=== PATIENT | female | born 2000 | race Caucasian/White ===

== ENCOUNTER 2019-07-23 02:28 | Emergency (ER) | payer BC, SELFPAY ==
--- NOTE | 2019-07-23 02:29 | ED.GENADULT ---
HPI - General Adult General Chief complaint: Altered Mental Status Stated complaint: od Time Seen by Provider: 07/23/19 02:32 Source: patient, EMS and RN notes reviewed Mode of arrival: EMS Limitations: no limitations History of Present Illness HPI narrative: Pt is a 18 y/o female who presents to the ED, via EMS, with c/o an OD. Pt reports that she took 7 Hydrocodone and an uncertain number of Melatonin ( just threw them into [my] hand ) around 1-1:30am. In response to what she had been intending she responded just trying to get someone's attention, maybe . She denies any nausea and notes that she is just tired. Pt denies having any medical issues or having any allergies. MD complaint: OD on Hydrocodone and Melatonin Onset (ago): hour(s) (1-2) Quality: other ( just trying to get someones attention, maybe ) Associated symptoms: other (tired) Related Data Home Medications Medication Instructions Recorded Confirmed No Home Medications 07/23/19 07/23/19 Allergies Allergy/AdvReac Type Severity Reaction Status Date / Time No Known Allergies Allergy Verified 07/23/19 02:42 Review of Systems Review of Systems: Narrative: Pt is a 18 y/o female who presents to the ED, via EMS, with c/o an OD. Pt reports that she took 7 Hydrocodone and an uncertain number of Melatonin ( just threw them into [my] hand ) around 1-1:30am. In response to what she had been intending she responded just trying to get someone's attention, maybe . She denies any nausea and notes that she is just tired. Pt denies having any medical issues or having any allergies. All systems reviewed & are unremarkable except as noted in HPI and below Constitutional: Constitutional: Reports other (tired) Gastrointestinal: Gastrointestinal: Denies nausea Psychiatric: Psychiatric: Reports other ( just trying to get someones attention, maybe ) [facility] Past Medical History Medical History (Updated 07/23/19 @ 05:18 by Dick Braswell MD) Kidney stone UTI (urinary tract infection) Surgical History Surgical History (Updated 07/23/19 @ 02:42 by Charo Oneal) History of renal stent due to kidney stone History of right knee surgery History of tonsillectomy Family History Family History (Updated 04/01/19 @ 13:28 by DOCTOR UNKNOWN) Mother Family history of gastrointestinal disorder Father Patient's father is in good health Cerebrovascular accident Grandparent Carcinoma of colon Social History Social History Smoking status: Never smoker Alcohol intake: current Exam Const: General: healthy appearing, no acute distress and alert Nutritional Appearance: well nourished Orientation/consciousness: oriented x3 HENMT: Head: normal to inspection Mouth: Yes moist mucous membranes Eyes: Conjunctivae: conjunctivae normal Pupils: PERRL EOM: EOM intact bilaterally Neck: Neck: normal visual inspection Resp: Effort & Inspection: normal respiratory effort Auscultation: clear to auscultation bilaterally, no rales, no rhonchi and no wheezes Cardio: Jugular venous distension: no JVD Rate: regular rate Rhythm: regular rhythm Heart sounds: no murmurs GI: Inspection: non-distended GI Palp: Yes soft and No tender Skin: General skin exam: normal color Neuro: General: oriented x3 and moves all extremities Speech: normal speech Extrem: General: no edema Psych: Appearance: well kempt Affect: normal affect Course Course Emergency Course: Poison control contacted. Recommend 4 hour acetaminophen level. Evaluated by crisis. They feel she is safe for discharge on a safety plan. Her parents are on their way from [place] to pick her up. Assuming 4 hour Tylenol level is okay I will plan to discharge her into their care. 4 hour acetaminophen level within normal range Vital Signs Vital signs: Vital Signs Temperature 37.3 C 07/23/19 02:37 Pulse Rate 85 07/23/19 02:37 Respiratory Rate 13 07/23/19 02:37 Blood Pressure 114
[2019-07-23 02:37] VITALS: BP 114/100; PULSE 85; RESP 13; TEMP 37.3; O2SAT 97
--- NOTE | 2019-07-23 02:40 | PC.NURSE ---
Called Poison Control, spoke with Nina. Verbalized she would not expect the patient to deteriorate and advised symptomatic care. Advised to obtain 4 hour post Acetaminphen level.
[2019-07-23 02:46] VITALS: RESP 14
[2019-07-23] MEDS: SODIUM CHLORIDE 0.9% IV 1,000 ML 999 ML IV CONT (03:04)
[2019-07-23 03:11] LABS: Basophils Absolute Auto 0.1 K/mm3 (0.0-0.1); Basophils Percent Auto 0.9 % (0.2-1.2); Eosinophils Percent Auto 0.2 % (0-4.4); Hematocrit 41.1 % (37.0-47.0); Hemoglobin 13.1 g/dL (12.0-15.0); Immature Granulocyte Absolute 0.02 K/mm3 (0.00-0.031); Immature Granulocyte Percent A 0.4 % (0-0.5); Lymphocytes Absolute Auto 2.74 K/mm3 (0.9-3.2); Mean Corpuscular HGB Conc 31.9 g/dl (32-36); Mean Corpuscular Hemoglobin 28.9 pg (26-34); Mean Corpuscular Volume 90.5 fl (80-100); Mean Platelet Volume 8.5 fl (7.4-10.4); Monocytes Absolute Auto 0.3 K/mm3 (0.1-0.6); Neutrophils Absolute Auto 2.2 K/mm3 (1.3-6.7); Neutrophils Percent Auto 41.5 % (45.5-73.1); Platelet Count Result 232 k/mm3 (150-375); Red Blood Count 4.54 M/mm3 (4.2-5.4); Red Cell Distribution Width 13.3 % (11.5-14.5); White Blood Count 5.4 K/mm3 (4.5-10.0)
[2019-07-23 03:16] LABS: Add Urine Microscopic? YES; Appearance Urine Clear (Clear); Bacteria Urine Trace /hpf; Bilirubin Urine Negative (Negative); Blood Urine 1+ (Negative); Color Urine Straw (Yellow); Glucose Urine UA Negative (Negative); Ketones Urine Negative (Negative); Leukocyte Esterase Ur Negative LEU/UL (Negative); Mucus Urine Rare /lpf; Nitrate Urine Negative (Negative); Protein Urine Negative (Negative); RBC Urine 0-2 /hpf (0-2); Specific Grav Ur 1.006 (1.001-1.035); Squamous Epithelial Cell Urine Occasional /hpf (Few); Urobilinogen Urine Negative mg/dL (<2.0); WBC Urine 0-3 /hpf
[2019-07-23 03:22] LABS: Acetaminophen 13 ug/mL (10-30); Ethanol 70 mg/dL (<10); Salicylate < 1.0 mg/dL (2-20)
[2019-07-23 03:23] LABS: Alanine Aminotransferase 295 U/L (4-35); Albumin Level 4.4 g/dL (3.5-5.1); Alkaline Phosphatase 68 U/L (38-126); Aspartate Amino Transferase 114 U/L (14-36); Bilirubin,Total 0.5 mg/dL (0.2-1.3); Blood Urea Nitrogen 6 mg/dL (7-17); Calcium 9.1 mg/dL (8.4-10.2); Carbon Dioxide 26 mmol/L (22-30); Chloride 105 mmol/L (98-107); Estimated CRCL calculation 103 ml/min; Estimated Glomerular Filt Rate > 60; Glucose 80 mg/dL (65-105); Potassium 3.7 mmol/L (3.4-5.0); Sodium 143 mmol/L (137-145)
[2019-07-23 03:26] LABS: Amphetamine Screen Urine Negative (Negative); Barbiturate Screen Urine Negative (Negative); Benzodiazepines Screen Urine Negative (Negative); Cannabinoid Screen Urine Negative (Negative); Cocaine Screen Urine Negative (Negative); Methadone Screen Urine Negative (Negative); Opiate Screen Urine Positive (Negative); Phencyclidine Screen Urine Negative (Negative)
[2019-07-23 03:28] VITALS: BP 109/62; PULSE 68; RESP 18; O2SAT 96
[2019-07-23 03:35] LABS: Atypical Lymphocytes Present
[2019-07-23 03:36] LABS: Platelet Estimate Adequate (Adequate)
[2019-07-23 04:48] VITALS: BP 124/80; PULSE 82; RESP 16; O2SAT 98
[2019-07-23 05:52] LABS: Acetaminophen 14 ug/mL (10-30)
[2019-07-23 08:04] VITALS: BP 115/85; PULSE 78; RESP 16; O2SAT 99
--- NOTE | 2019-08-26 13:39 | PC.NURSE ---
LATE ENTRY This note is being entered to document information to the patient's record. The following information was omitted on [07/23/2019], by [daphne Garza RN]. NS stop time is [id number]
== END 2019-07-23 08:05 | disposition home or self-care (01) ==
PROVIDERS: Emergency Provider Emergency Medicine
DX: T40.2X2A Poisoning by other opioids, intentional self-harm, initial encounter (principal); Z87.442 Personal history of urinary calculi; Z87.440 Personal history of urinary (tract) infections
CPT/HCPCS: 36415; 80053; 80307; 81001; 85025; 96360; 99284; J7030